=== PATIENT | male | born 1965 | race Hispanic/Latino ===

== ENCOUNTER 2021-05-29 13:26 | Emergency (ER) | payer SELFPAY ==
[~2021-05-29] VITALS: Ht 170.2 cm; Wt 56.7 kg
[2021-05-29] MEDS ORDERED: TETANUS/DIPHTHERIA TOX ADULT 0.5 ML SYR IM ONE (14:00)
[2021-05-29] MEDS ORDERED: TETANUS/DIPHTHERIA TOX ADULT 0.5 ML SYR ONE (14:09)
[2021-05-29] MEDS ORDERED: IBUPROFEN600 MG PO (14:55)
== END 2021-05-29 15:18 | disposition home or self-care (01) ==
LOC: FSED 13:33
DX: S20.211A Contusion of right front wall of thorax, initial encounter (principal); W18.2XXA Fall in (into) shower or empty bathtub, initial encounter; Y93.E1 Activity, personal bathing and showering; Y92.002 Bathroom of unspecified non-institutional (private) residence as the place of occurrence of the external cause
CPT/HCPCS: 71101; 90471; 90714; 96372; 99283